=== PATIENT | male | born 1990 | race Caucasian/White ===

== ENCOUNTER 2024-04-25 04:16 | Day surgery (SDC) | payer OTHER ==
[2024-04-25] VITALS (194 sets, daily range): BP systolic 85–150; BP diastolic 61–112
[~2024-04-25] VITALS: Ht 172.7 cm; Wt 104.3 kg
[2024-04-25] MEDS ORDERED: LACTATED RINGER'S 1,000 ML IV PRN ×3 (07:30→19:00)
[2024-04-25] MEDS ORDERED: diazePAM 5 MG/TAB PO PRN ×2 (07:30→08:30)
[2024-04-25] MEDS ORDERED: PANTOPRAZOLE SODIUM Sesquihydr 40 MG/TAB PO PRN (07:30)
[2024-04-25] MEDS ORDERED: FAMOTIDINE 20 MG/TAB PO PRN (07:30)
[2024-04-25] MEDS ORDERED: CYANOCOBALAMIN 500 MCG/TAB ( B12) PO PRN (07:30)
[2024-04-25] MEDS ORDERED: cloNIDine HCL 0.1 MG/TAB PO PRN (07:30)
[2024-04-25] MEDS ORDERED: SCOPOLAMINE 1.5 MG DIS TD PRN (07:30)
[2024-04-25] MEDS ORDERED: ALBUTEROL SULFATE 2.5 MG VIAL IN PRN (07:30)
--- NOTE | 2024-04-25 07:30 | NUR ---
Patient arrived to the ANR suite, identification and demographics confirmed. Patient to room 10, AAO and ambulatory vitals obtained, ID/allergy/fall bands placed, changed into hospital gown, procedure and timeline explained. All questions answered, patient presents no concerns at this time. Dr. Hoffman telephoned with patient intake information including usage, dose, last dose/time taken and initial vital signs. Patient history and allergies reviewed with MD. Orders received for 10 mg PO Valium and 0.3 mg PO Clonidine now. Will reassess per protocol in 1.5 hours and update MD with assessment and vitals.
[2024-04-25] MEDS ORDERED: ASCORBIC ACID 4,000 MG in SODIUM CHLORIDE 0.9% 1,000 ML IV SCH (08:00)
[2024-04-25 08:40] LABS: BASO% 0.6 % (0-3); EOS% 5.2 % (0-8); HEMATOCRIT 38.8 % (39.0-50.0); HEMOGLOBIN 12.7 g/dl (14.0-18.0); IMMATURE GRANULOCYTES 0.3 % (0.0-5.0); MEAN CELL VOLUME 83.4 fL CALC (80.0-100.0); MEAN CORPUSCULAR HGB 27.3 pG CALC (26.0-32.0); MEAN CORPUSCULAR HGB CONC 32.7 g/dL CAL (32.0-36.0); MONO% 9.9 % (2-13); NEUT# 1.67 thou/uL (1.82-7.42); RED BLOOD COUNT 4.65 mill/uL (4.70-6.10); RED CELL DISTRI WIDTH 12.6 % (11.5-15.5)
[2024-04-25] MEDS ORDERED: VENTOLIN HFA108 MCG IN (08:43)
[2024-04-25] MEDS ORDERED: NIFEDIPINE20 MG PO (08:44)
[2024-04-25 09:17] LABS: BILIRUBIN, TOTAL 0.2 mg/dL (0.2-1.3); CREATININE 0.8 mg/dL (0.7-1.3); TOTAL PROTEIN 6.4 g/dL (6.3-8.2)
--- NOTE | 2024-04-25 09:28 | NUR ---
Patients vital signs within pre-treatment parameters for 1.5 hour recheck. No indication for additional Valium or Clonidine as patient is resting comfortably and vital signs are within range. Patient resting comfortably in bed. Easily aroused, maintains focus, and drifts back to sleep. No signs of active withdrawal or distress noted at this time. Continuous SPO2, rhythm, and respiratory monitoring initiated. IVF @ 250 mL/HR, room air, VSS.
[2024-04-25] MEDS ORDERED: ROCURONIUM BROMIDE 10 MG/ML 5ML VIAL IV PRN (09:35)
[2024-04-25] MEDS ORDERED: MAGNESIUM SULFATE HEPTAHYDRATE 100 ML IV PRN (09:35)
[2024-04-25] MEDS ORDERED: cloNIDine HCL 0.1 MG/TAB VT PRN (09:35)
[2024-04-25] MEDS ORDERED: PROPOFOL 100 ML IV PRN (09:35)
[2024-04-25] MEDS ORDERED: DiphenhydrAMINE HCL 50 MG/ML SDV IV PRN (09:35)
[2024-04-25] MEDS ORDERED: DEXAMETHASONE SODIUM PHOSPHATE PF 10 MG/ML SDV IV PRN ×2 (09:35→19:00)
[2024-04-25] MEDS ORDERED: THIAMINE HCL 100 MG/ML 2ML VIAL IV PRN (09:35)
[2024-04-25] MEDS ORDERED: OCTREOTIDE ACETATE 100 MCG/VIAL SDV SC PRN (09:35)
[2024-04-25] MEDS ORDERED: diazePAM 5 MG/TAB VT PRN (09:35)
[2024-04-25] MEDS ORDERED: LIDOCAINE HCL 1% (10MG/ML) 100 MG/10 ML MDV IV PRN (09:35)
[2024-04-25] MEDS ORDERED: PROPOFOL 10 MG/ML 100ML VIAL IV PRN (09:35)
[2024-04-25] MEDS ORDERED: SUCCINYLCHOLINE CHLORIDE 20 MG/ML 10ML VIAL IV PRN (09:35)
[2024-04-25] MEDS ORDERED: cloNIDine HYDROCHLORIDE 100 MCG/ML 10 ML INJ IV PRN (09:35)
[2024-04-25] MEDS ORDERED: MIDAZOLAM HCL 2 MG/2 ML VIAL IV PRN (09:35)
[2024-04-25] MEDS ORDERED: NALTREXONE HCL 50 MG/TAB VT PRN (09:35)
[2024-04-25] MEDS ORDERED: LIDOCAINE HCL 1% (10MG/ML) 100 MG/10 ML MDV VT PRN ×2 (09:35)
[2024-04-25] MEDS ORDERED: STERILE WATER FOR IRRIGATION 1,000 ML BTL IR PRN (09:35)
[2024-04-25] MEDS ORDERED: ONDANSETRON HCl 4 MG/2 ML SDV IV PRN ×3 (09:35→19:00)
[2024-04-25] MEDS ORDERED: POTASSIUM CHLORIDE 20 MEQ/100 ML BAG IV PRN (09:35)
[2024-04-25] MEDS ORDERED: PHENYLEPHRINE HCL 10 MG/ML VIAL ONE (09:39)
[2024-04-25] MEDS ORDERED: SODIUM CHLORIDE 0.9% 250 ML IV ONE (09:42)
--- NOTE | 2024-04-25 11:30 | NUR ---
Induction Note Patient to ANR procedure room. Time out performed at 1050. Patient placed on monitors, Basim hugger, bilateral wrist restraints applied for ET tube protection. Versed 5mg given IV push at 1052 Tourniquet applied to right arm Lidocaine 100mg given [id number] IV push followed by Rocoronium 10mg at 1119 IV push and held for 90 seconds. Propofol bolus of 130mg given at 1120 IV push. Succinylcholine 80mg given IV push at 1121. Smooth intubation with 7.5 ETT. Positive CO2. Positive Auscultation for air exchange. Patient placed on ventilator for spontaneous ventilation. Placed on Propofol IV drip at 1122. OG inserted. Positive air on auscultation. Positive gastric content. Stomach washed at this time. Naltrexone 50mg given via OG tube with Clonidine 0.2 mg given via OG Tube. OG clamped for 45 minutes. Will monitor patient for symptoms of withdrawal and adjust propfol accordingly.
--- NOTE | 2024-04-25 12:00 | NUR ---
OG open note OG open early due to vomiting. Gastric content draining into drainage bag. OG to drain for 45 minutes. Propofol will be titrated down based on patient.
[2024-04-25] MEDS ORDERED: NALTREXONE50 MG PO (12:16)
[2024-04-25] MEDS ORDERED: KLONOPIN2 MG PO (12:16)
[2024-04-25] MEDS ORDERED: CLONIDINE0.1 MG PO (12:16)
--- NOTE | 2024-04-25 12:40 | NUR ---
OG close note Stomach washed at this time. Naltrexone 50 mg with Clonidine 0.2 mg via OG tube. OG will be clamped for 45 minutes.
--- NOTE | 2024-04-25 13:25 | NUR ---
OG open note OG open at this time. Gastric content draining into drainage bag. OG to drain for 45 minutes. Propofol will be titrated down based on patient.
--- NOTE | 2024-04-25 14:15 | NUR ---
OG close note Stomach washed at this time. Naltrexone 50 mg with Clonidine 0.2 mg via OG tube. OG will be clamped for 45 minutes.
[2024-04-25] MEDS ORDERED: hydrALAZINE HCL 20 MG/ML VIAL(1 ML) IV SCH (15:30)
--- NOTE | 2024-04-25 16:45 | NUR ---
OG close note Stomach washed at this time. Naltrexone 50 mg with Clonidine 0.2 mg via OG tube. OG will be clamped for 45 minutes.
--- NOTE | 2024-04-25 17:45 | NUR ---
Extubation note Closing medications given Benadryl 50mg IV push, Decadron 10mg IV push,Magnesium 4 grams IV, Zofran 8mg IV push, Octreotide 100mcg SC. Stomach washed out prior to extubation. Suctioned gastric content. OG removed. Patient extubated. Propofol Discontinued. Wrist restraints removed. Basim hugger Removed. See ANR Moderate sedate recovery record for further notes and assessment.
--- NOTE | 2024-04-25 18:03 | NUR ---
PT MOTHER CONTACTED AND INFORMED OF PT PROGRESS AND NEXT STEPS.
--- NOTE | 2024-04-25 18:34 | NUR ---
patient arrived to [facility] from [facility] patient asleep in bed; on 2l of ; breathing even; bedside report was given from Layla RN; vitals stable; patinet laying on right side; iv site clean and intact running with LR @100; no s.s of distress at this time; jeannie light within reach, personal items in locker; bed in lowest postion; bed alarm activated
[2024-04-25] MEDS ORDERED: PROMETHAZINE HCL 25 MG in SODIUM CHLORIDE 0.9% 50 ML IV PRN (19:00)
[2024-04-25] MEDS ORDERED: LORazepam 2 MG/ML IV PRN ×2 (19:00)
[2024-04-25] MEDS ORDERED: HALOPERIDOL LACTATE 5 MG/ML SDV IV PRN (19:00)
[2024-04-25] MEDS ORDERED: ACETAMINOPHEN 1,000 MG/100 ML VIAL IV PRN (19:00)
[2024-04-25] MEDS ORDERED: KETOROLAC TROMETHAMINE 30 MG/ML SDV IV PRN (19:00)
[2024-04-25] MEDS ORDERED: PROMETHAZINE HCL 12.5 MG in SODIUM CHLORIDE 0.9% 50 ML IV PRN (19:00)
[2024-04-25] MEDS ORDERED: ACETAMINOPHEN 500 MG TAB PO PRN (19:00)
--- NOTE | 2024-04-25 20:00 | NUR ---
RECEVIED REPORT FROM [facility] NURSE CECIL SEBASTIAN. PT NOTED LAYING IN BED ON RT SIDE, NASAL CANNULA IN PLACE ON 2L O2. PT IV SITE IN RH WAS PULLED OUT, PT UNAWARE HOW. REMOVED IV AND CATHETER WAS INTACT. PT HAS IV TO LW THAT APPEARS HEALTHY AND INTACT, IVF PER EMAR. PT IS AROUSABLE TO SPEECH, ABLE TO GIVE VERBAL REPSONSES, SPEECH SLIGHTLY GARBLED AT THIS TIME. PT DENIES ANY N/V/P. NURSING ASSESSMENT COMPLETED. BED ALARM ON AND SAFETY PRECAUTIONS IN PLACE.
[2024-04-25] MEDS ORDERED: PATIENT' OWN MED CONTROLLED 1 EA DOSE IV PRN (21:00)
--- NOTE | 2024-04-25 21:33 | NUR ---
PT SECOND IV IN LW, PT PULLED IV TUBING BREAKING TUBING AND DISLODGING IV CATHETER. IV WAS REMOVED WITH CATHETER INTACT. NEW IV ACCESS ATTEMPTED BUT NOT OBTAINED AT THIS TIME. NURSING INSIDE CHANNEL ACCOUNT MANAGER INFORMED AND WILL ATTEMPT.
[2024-04-25] MEDS ORDERED: clonazePAM 1 MG/TAB PO PRN (23:00)
[2024-04-25] MEDS ORDERED: cloNIDine HCL 0.1 MG/TAB PO SCH (23:00)
--- NOTE | 2024-04-25 23:00 | NUR ---
NURSING AMMUNITION STORAGE SUPERINTENDENT AND ICU NURSE BOTH ATTEMPTED TO START NEW IV SITE IN PT. ATTEMPTS HAVE BEEN UNSUCCEFUL. PT IS LAYING IN BED ON RT SIDE, RESTING COMFORTABLY. PT DENIES ANY N/V/P AT THIS TIME. BED ALARM ON AND SAFETY PRECAUTIONS IN PLACE. AN ER NURSE WILL ATTEMPT NEW IV SITE.
--- NOTE | 2024-04-26 00:41 | NUR ---
ER NURSE WAS ABLE TO GET NEW IV START. PT PLACED BACK ONTO IVF. PT LAYING IN BED ON STOMACH WITH HEAD TO THE RT SIDE. PT REFUSING TO WEAR NASAL CANNULA, O2 SAT WNL ON RM AIR. DENIES ANY N/V/P. BED ALARM ON AND SAFETY PRECAUTIONS IN PLACE.
[2024-04-26 03:39] VITALS: BP 147/69
[2024-04-26] MEDS ORDERED: NALTREXONE HCL 50 MG/TAB PO SCH (04:00)
[2024-04-26] MEDS ORDERED: cloNIDine HCL 0.1 MG/TAB PO PRN (04:00)
[2024-04-26] MEDS ORDERED: clonazePAM 1 MG/TAB PO PRN ×2 (04:00→08:00)
--- NOTE | 2024-04-26 04:21 | NUR ---
PT LAYING IN BED ON RIGHT SIDE WITH NASAL CANNULA IN PLACE. ADMINSITERED 0400 MEDS PER EMAR, PT TOLERATED WELL. PT DENIED ANY PAIN BUT DID C/O NAUSEA. ADMINSITERED MEDICATION PER EMAR FOR NAUSEA. VSS. NO S/S OF DISTRESS. BED ALARM ON AND SAFETY PRECAUTIONS IN PLACE.
[2024-04-26 05:16] LABS: HEMATOCRIT 40.9 % (39.0-50.0); HEMOGLOBIN 13.9 g/dl (14.0-18.0); IMMATURE GRANULOCYTES 0.2 % (0.0-5.0); LYMPH% 15.8 % (15-41); MEAN CELL VOLUME 81.6 fL CALC (80.0-100.0); MEAN CORPUSCULAR HGB 27.7 pG CALC (26.0-32.0); MONO% 1.8 % (2-13); NEUT% 82.2 % (42-76); RED BLOOD COUNT 5.01 mill/uL (4.70-6.10); RED CELL DISTRI WIDTH 12.1 % (11.5-15.5)
[2024-04-26 05:21] LABS: ALBUMIN 4.3 g/dL (3.2-5.0); MAGNESIUM 2.2 mg/dL (1.6-2.3); POTASSIUM 3.6 mmol/l (3.5-5.1)
[2024-04-26 05:24] LABS: BILIRUBIN, TOTAL 0.3 mg/dL (0.2-1.3)
[2024-04-26] MEDS ORDERED: ACETAMINOPHEN 325 MG/TAB PO SCH (08:00)
[2024-04-26] MEDS ORDERED: cloNIDine HCL 0.1 MG/TAB PO SCH (08:00)
[2024-04-26] MEDS ORDERED: PANTOPRAZOLE SODIUM Sesquihydr 40 MG/TAB PO SCH (08:00)
[2024-04-26] MEDS ORDERED: POTASSIUM CHLORIDE 20 MEQ/TAB PO SCH (08:30)
--- NOTE | 2024-04-26 08:30 | NUR ---
PATIENT A/O X3; ROOM AIR; BREATHING UNLABORED AND EVEN; DENEID ANY PAIN; DENEID ANY N/D/V AT THIS TIME; PATEINT TOELRATED HIS MEDICATION WITH NOISSUES; NO S/S OF WITHDRAWLS OR DISTRESS AT THIS TIME; IV SITE CLEAN AND INTACT RUNNING WITH LR @100; ENCOURAGED PATIENT TO EAT BREAKFAST IF HE CAN; NO COMPLAINTS AT THIS TIME; POTASSIUM WAS 3.6 UNDER RANGE FOR PROGRAM, REPLACEMENT WAS ORDERED; MAG WAS WITIHIN RANGE;CALL LIGHT WITHIN REACH, VERBALIZED UNDERSTANDING ON HOW TO USE, PERSONAL ITEMS IN ANR LOCKER; BED IN LOWEST POSTION; BED ALARM ACTIVATED
[2024-04-26 08:55] VITALS: BP 138/67
[2024-04-26] MEDS ORDERED: ACETAMINOPHEN 500 MG TAB PO PRN (09:00)
[2024-04-26] MEDS ORDERED: Cholecalciferol 2,000 UNIT/TAB PO PRN (09:00)
[2024-04-26] MEDS ORDERED: MAGNESIUM OXIDE 400 MG/TAB PO PRN (09:00)
--- NOTE | 2024-04-26 12:00 | NUR ---
PATIENT WALKED IN HALLWAY STATING THAT HE IS GOING TO SIGN OUT AMA IF WE DONT ALLOW HIM TO LEAVE AT THIS TIME, TALKED TO PATIENT ON REASON FOR WANTING TO SIGN OUT BEFORE PROGRAM DICHARGE TIME, STATES THAT" WHY WOULD I STAY HERE INTO 4 WHEN I FEEL FINE NOW" EDUCATED PATIENT ON WHY IS WOULD BE A GOOD REASON TO SEE TO WAIT IT OUT, DR. BENITO PEREZED PATIENT; DENIED ANY PAIN; HAD ONE EPIDSODE OF NASUEA,MEDICATED PER EMAR; PATEINT TOOK A SHOWER WITH NOISSUES; IV SITE WAS SALINE LOCKED WITH NOISSUES; PERSONAL ITEMS WAS GIVEN TO PATIENT; ROOM AIR; BREATHING UNLABORED,SAFTEY MEASURES IN PLACE
--- NOTE | 2024-04-26 14:22 | NUR ---
IV site discontinued, cath intact. No edema , no redness, voices no discomfort. Discharge instructions given. Patient verbalizes understanding of same. Discharged in stable condition via Ambulatory to Home with family. All belongings sent with pt.
== END 2024-04-26 14:06 | disposition home or self-care (01) | DRG 897 ==
LOC: ANR 04:16 → MS2 04:19 → ANR 09:00 → MS2 18:30 → ANR 04-26 14:06
PROVIDERS: ATTEND Anesthesiology
DX: F11.20 Opioid dependence, uncomplicated (principal)
CPT/HCPCS: J0131; J1100; J2060; J2354; J3475; J3490